=== PATIENT | male | born 1955 | race Caucasian/White ===

== ENCOUNTER 2017-03-01 12:23 | Day surgery (SDC) | payer OTHER ==
--- NOTE | 2017-03-01 07:43 | HP ---
DATE OF SURGERY: 03/01/2017 HISTORY OF PRESENT ILLNESS: The patient is a 62 year-old with subcutaneous back mass increasing in size, increasing aches recently and desires excision. PAST MEDICAL HISTORY: Heart disease, diabetes, hypertension, gout in the past. PAST SURGICAL HISTORY: He had colonoscopy by Dr. Morton in the past. Right shoulder and right ankle surgery in the past. MEDICATIONS: Aspirin, Metformin, gabapentin and a blood pressure medication he did not know the name of. ALLERGIES: NKDA. FAMILY HISTORY: Heart disease, hypertension, diabetes. SOCIAL HISTORY: One pack per day smoker, denies alcohol abuse. REVIEW OF SYSTEMS: Twelve systems reviewed per admission assessment. No chest pain or palpitations other systems negative or noncontributory as above and per preadmission questionnaire. PHYSICAL EXAMINATION: GENERAL: No acute distress. HEENT: Sclerae nonicteric. NECK: No JVD. CHEST: Equal excursion, nonlabored breathing. CVS: Regular rate and rhythm. ABDOMEN: Soft, nondistended. EXTREMITIES: No significant edema. NEURO: Alert, moving extremities grossly symmetrically. BACK: He has a subcutaneous mass question of lymphoma on his back. IMPRESSION: Enlarging subcutaneous back mass or lipoma increasing in size, increasing aches and pains. I felt he would benefit from excisional biopsy. Risks and benefits explained in detail including but not limited to bleeding or infection, small risk of hematoma or seroma formation, risk of wound dehiscence possibly requiring packing, general risk of anesthesia sedation, general risk of aches, pains, burning or numbness, risk of deep venous thrombosis, pulmonary embolism, or pneumonia. He understands what we excise likely will not recur but he could get nodules, masses, nodules or cysts adjacent to or elsewhere on his body. He understands and agrees to the planned procedure. We will proceed with excisional biopsy of enlarging back mass as an outpatient.
[~2017-03-01 12:23] MED LIST: Lactated Ringers 1,000 ML IV ONE; Sensorcaine 0.25% 10 ML ONE
[2017-03-01] MEDS ORDERED: Quelicin Fliptop 200 MG/10 ML IV ONE (12:24)
[2017-03-01] MEDS ORDERED: DIPRIVAN 200 MG/20 ML IV ONE (12:24)
[2017-03-01] MEDS ORDERED: TRANDATE 20 MG/5 ML SYRINGE IV ONE (12:24)
[2017-03-01] MEDS ORDERED: CEFAZOLIN 2 GM-D5W BAG** 2 GM/50 ML ML IV ONE (12:24)
[2017-03-01] MEDS ORDERED: Versed 2 MG/2 ML Injection IV ONE (12:24)
[2017-03-01] MEDS ORDERED: SUBLIMAZE 100 MCG/2 ML IV ONE (12:24)
[2017-03-01] MEDS ORDERED: Lactated Ringers 1,000 ML IV SCH (13:30)
[2017-03-01] MEDS ORDERED: Zofran 4 MG/2 ML VIAL ONE (16:08)
[2017-03-01] MEDS ORDERED: MORPHINE SULFATE 10 MG/ML ONE (16:14)
[2017-03-01] MEDS ORDERED: APRESOLINE 20 MG/ML INJ ONE (16:23)
[2017-03-01] MEDS ORDERED: TRANDATE 100 MG/20 ML MDV FOR DRIP IV ONE (16:24)
[2017-03-01] MEDS ORDERED: Transderm Scop 1.5MG Patch TOP ONE (17:05)
[2017-03-01] MEDS ORDERED: PHENERGAN 12.5 MG SUPP PR ONE (17:06)
[2017-03-01] MEDS ORDERED: Transderm Scop 1.5MG Patch ONE (17:08)
[2017-03-01] MEDS ORDERED: Phenergan 25 MG INJ ONE (17:08)
[2017-03-01] MEDS ORDERED: Phenergan 25 MG INJ IV PRN (17:17)
[2017-03-01 17:59] VITALS: BP 130/75; PULSE 68; O2SAT 95
--- NOTE | 2017-03-02 11:32 | OP ---
SURGERY DATE/TIME: 03/01/2017 1504 PREOPERATIVE DIAGNOSIS: Symptomatic enlarging back subcutaneous mass or lipoma. POSTOPERATIVE DIAGNOSIS: Symptomatic enlarging back subcutaneous mass or lipoma. PROCEDURE: Excisional biopsy back lipoma (six centimeters in size). SURGEON: Dr. Talha Garg. ANESTHESIA: General. ESTIMATED BLOOD LOSS: Minimal. INDICATIONS: As noted above. Risks and benefits explained in detail and not limited to and consent obtained. DESCRIPTION OF PROCEDURE AND FINDINGS: The site had been confirmed in the holding area. He was taken to the operating room. General anesthesia introduced. Placed in lateral position. Appropriate padding and positioning per anesthesia and OR staff. The back and flank were prepped and draped in usual sterile fashion. After official time out and no disagreement with planned procedure, a transverse incision directly in the area and dissection carried down through subcutaneous tissue and circumferentially around this dense lipomatous density that is much denser than the surrounding normal appearing subcutaneous fat. Dissection was carried directly off the underlying fascia and muscle. The specimen passed off and measured about 6 cm in size. Pin point cauterization and good hemostasis noted. No signs of any active bleeding. The deep and superficial subcu were then closed at the level of the fascia with interrupted 3-0 Vicryl, skin closed with 4-0 Vicryl and some interrupted 3-0 Prolene used to reinforce given location on the back. Steri-Strips and sterile dressing applied. The patient tolerated the procedure well. There were no immediate complications. Findings discussed with the family out in the waiting area.
== END 2017-03-01 18:06 | disposition home or self-care (01) ==
LOC: SDC 12:23
PROVIDERS: ATTEND Surgery
PROC: 0HB6XZZ Excision of Back Skin, External Approach (ICD-10-PCS; principal; 2017-03-01)
DX: D17.1 Benign lipomatous neoplasm of skin and subcutaneous tissue of trunk (principal); R20.8 Other disturbances of skin sensation; I10 Essential (primary) hypertension; E11.9 Type 2 diabetes mellitus without complications; Z79.4 Long term (current) use of insulin; M10.9 Gout, unspecified
CPT/HCPCS: 00300; 82962; J0330; J0360; J0690; J2250; J2270; J2405; J2550; J2704; J3010; A9270-GY